=== PATIENT | female | born 1950 | race Caucasian/White ===

== ENCOUNTER 2024-03-28 23:51 | Emergency (ER) | payer OTHER ==
[~2024-03-28] VITALS: Ht 167.6 cm; Wt 75.0 kg
[2024-03-28 23:55] VITALS: O2SAT 100
[2024-03-29] MEDS ORDERED: ONDANSETRON HCL 4MG/2ML INJ IV ONE
[2024-03-29] MEDS ORDERED: MAGNESIUM/ALUMINUM HYDROXIDE/SIMETHICONE 30ML UDC PO ONE
[2024-03-29] MEDS: SODIUM CHLORIDE 0.9% 500 ML IV ONE (00:38)
[2024-03-29] MEDS: ONDANSETRON HCL 4MG/2ML INJ IV NR (00:45)
[2024-03-29] MEDS: MAGNESIUM/ALUMINUM HYDROXIDE/SIMETHICONE 30ML UDC PO NR (00:46)
[2024-03-29 00:51] LABS: EOSINOPHILS % 3.2 % (0.0-5.0); HEMATOCRIT. 39.6 % (36.0-48.0); HEMOGLOBIN. 13.1 g/dL (12.0-16.0); LYMPHOCYTES % 31.2 % (20.0-50.0); MEAN CORPUSCULAR HGB CONC 33.2 g/dL (31.0-37.0); MEAN CORPUSCULAR VOLUME 84.3 fL (81.0-99.0); MEAN PLATELET VOLUME 8.4 fl (7.4-10.4); MONOCYTES % 9.1 % (2.0-8.0); NEUTROPHILS % 55.5 % (40.0-76.0); PLATELET 78 x1000/uL (130-400); RED CELL DISTRIBUTION WIDTH 13.6 % (11.6-14.6); WHITE BLOOD COUNT 2.4 x1000/uL (4.5-11.0)
[2024-03-29 00:57] LABS: CARBON DIOXIDE 24 mEq/L (21-32); CHLORIDE 104 mEq/L (98-107); POTASSIUM 3.5 mEq/L (3.5-5.1); SODIUM 135 mEq/L (136-145)
[2024-03-29 00:58] LABS: CALCIUM 9.3 mg/dL (8.7-10.4)
[2024-03-29 01:03] LABS: CREATININE 0.5 mg/dL (0.6-1.0); GLUCOSE 172 mg/dL (70-105); UREA NITROGEN BLOOD 9 mg/dL (9-23)
[2024-03-29 01:04] LABS: ALANINE AMINOTRANSFERASE 49 IU/L (10-49); INR 1.1; PARTIAL THROMBOPLASTIN TIME 27.2 sec (23.4-31.0); PROTHROMBIN TIME 12.5 sec (9.6-11.0)
[2024-03-29 01:05] LABS: ALBUMIN 3.9 g/dL (3.2-4.8); ASPARTATE AMINOTRANSFERASE 46 IU/L (<34); BILIRUBIN DIRECT 0.2 mg/dL (<=3.0); BILIRUBIN TOTAL 0.6 mg/dL (0.1-1.0); PROTEIN TOTAL 7.1 g/dL (6.0-8.3)
[2024-03-29 01:20] LABS: ETHANOL BLOOD < 10 mg/dL (<10); TROPONIN I HIGH SENSITIVITY < 4 ng/L (3.0-34)
[2024-03-29] MEDS: IOHEXOL-300 100 ML BOTTLE ONE (03:43)
[2024-03-29 05:30] VITALS: BP 127/76; PULSE 72; RESP 15; TEMP 98.2
== END 2024-03-29 05:42 | disposition short-term general hospital (02) ==
LOC: ER 23:51
DX: R62.7 Adult failure to thrive (principal); F32.9 Major depressive disorder, single episode, unspecified; E11.9 Type 2 diabetes mellitus without complications
CPT/HCPCS: 36415; 93005; 99285; 80076; 80048; 80320; 83880; 83605; 83690; 85025; 85610; 85730; 84484; 71045; 74177; 96361; 96374; Q9967; J2405; J7040; G0480